=== PATIENT | female | born 1960 | race Caucasian/White ===

== ENCOUNTER 2019-03-16 12:04 | Emergency (ER) | payer OTHER ==
[~2019-03-16] VITALS: Ht 154.9 cm; Wt 63.5 kg
[2019-03-16] MEDS ORDERED: MEDROLPACK PO (12:46)
[2019-03-16] MEDS ORDERED: EPIPEN 2-P0.3 MG/0.3 IM (12:46)
== END 2019-03-16 13:03 | disposition home or self-care (01) ==
LOC: ER 12:04
DX: T78.1XXA Other adverse food reactions, not elsewhere classified, initial encounter (principal); L29.8 Other pruritus; X58.XXXA Exposure to other specified factors, initial encounter